=== PATIENT | male | born 1995 | race Caucasian/White ===

== ENCOUNTER → 2022-03-16 11:26 | Outpatient (BNVA) | payer OTHER, SELFPAY | PROVIDERS: PCP Nurse Practitioner Family; Visit Provider Nurse Practitioner Family | DX: R53.83 Other fatigue (principal); E16.2 Hypoglycemia, unspecified; E55.9 Vitamin D deficiency, unspecified; Z13.6 Encounter for screening for cardiovascular disorders; F43.10 Post-traumatic stress disorder, unspecified; R73.9 Hyperglycemia, unspecified; F41.9 Anxiety disorder, unspecified; F32.A Depression, unspecified | CPT/HCPCS: 80053; 80061; 82306; 82607; 83036; 84403; 84439; 84443; 85025 ==

== ENCOUNTER → 2022-04-16 08:31 | Outpatient (BNVA) | payer OTHER, SELFPAY | PROVIDERS: PCP Nurse Practitioner Family; Visit Provider Nurse Practitioner Family | DX: R79.89 Other specified abnormal findings of blood chemistry (principal); R53.83 Other fatigue | CPT/HCPCS: 80076; 84403; 86705; 86706; 86709; 86803; 87340 ==

== ENCOUNTER 2022-05-28 06:11 | Outpatient (CLI) | payer OTHER, SELFPAY ==
--- NOTE | 2022-05-28 | US_ITS ---
WS: [id number] RIGHT UPPER QUADRANT ULTRASOUND HISTORY: ELEVATED LIVER ENZYMES COMPARISON: None available. Liver: 14.3 cm in length. Normal size liver. No bile duct dilatation or mass. Portal Vein: Normal hepatopetal flow with monophasic waveform. Gallbladder: Normally distended gallbladder with no stones or wall thickening. CBD: 0.4 cm Pancreas: Normal size and echogenicity. Right kidney: 10.2 cm in length. Normal size and echogenicity. No hydronephrosis or mass. Aorta and IVC: Unremarkable abdominal aorta and IVC. No ascites. US/US abdomen limited [id number] IMPRESSION: Normal RIGHT upper quadrant ultrasound.
== END 2022-05-28 06:12 | disposition home or self-care (01) ==
LOC: RAD 06:12
PROVIDERS: PCP Nurse Practitioner Family; Visit Provider Family Medicine
DX: R74.8 Abnormal levels of other serum enzymes (principal)
CPT/HCPCS: 76705

== ENCOUNTER → 2023-05-31 10:01 | Outpatient (BNVA) | payer OTHER, SELFPAY | PROVIDERS: PCP Nurse Practitioner Family; Visit Provider Nurse Practitioner Family | DX: R05.9 Cough, unspecified (principal); J40 Bronchitis, not specified as acute or chronic | CPT/HCPCS: 71046; 87400; 87426 ==

== ENCOUNTER 2023-09-24 20:00 | Outpatient (CLI) | payer OTHER, SELFPAY | END 2023-09-24 20:01 | disposition home or self-care (01) | LOC: SLEEP 09-25 06:22 | PROVIDERS: PCP Nurse Practitioner Family; Visit Provider Family Medicine | DX: G47.33 Obstructive sleep apnea (adult) (pediatric) (principal) | CPT/HCPCS: 95811 ==

== ENCOUNTER 2023-12-12 02:32 | Emergency (ER) | payer OTHER, SELFPAY ==
[2023-12-12 02:35] VITALS: BP 154/112; PULSE 103; RESP 18; TEMP 36.8; O2SAT 96; BMI 36.2
[2023-12-12 02:42] VITALS: BP 154/112; O2SAT 95
--- NOTE | 2023-12-12 02:43 | XRR_ITS ---
PROCEDURE INFORMATION: Exam: XR Chest Exam date and time: 12/12/2023 3:14 AM Age: 28 years old Clinical indication: Shortness of breath; Additional info: SOB TECHNIQUE: Imaging protocol: Radiologic exam of the chest. Views: 1 view. COMPARISON: CR XR chest 2V* [id number] 05/31/2023 10:06 AM FINDINGS: Lungs: Unremarkable. No consolidation. Pleural spaces: Unremarkable. No pleural effusion. No pneumothorax. Heart/Mediastinum: Unremarkable. No cardiomegaly. Bones/joints: Unremarkable. XR/XR chest 1V portable [id number] IMPRESSION: No acute findings.
--- NOTE | 2023-12-12 02:44 | W.ED.ANXIETY ---
HPI - Anxiety General: Chief Complaint: Anxiety Stated Complaint: BP High\PTSD Anxiety Time Seen by Provider: 12/12/23 02:34 Source: patient Mode of arrival: ambulatory Limitations: no limitations History of Present Illness: 28-year-old male has a history of PTSD and anxiety states he started having some dyspnea at 10 he notices blood pressure was elevated to his started feeling extremely anxious. Studies just felt weak and not right with some fluttering in his chest along with some slight dyspnea he denies any vomiting or diarrhea. Associated symptoms: Reports chest pain; Deny chills, fever(s), nausea or vomiting Review of Systems Const: Denies: fever(s), chills, body aches or change in appetite ENMT: Denies: throat pain or dental pain Card: Reports: chest pain Resp: Reports: dyspnea GI: Denies: abdominal pain, nausea, vomiting or diarrhea : Denies: dysuria Musc: Denies: neck pain or back pain Skin/Breast: Denies: rash Psych: Reports: anxiety PFSH ED PFSH: Medical History Vitamin D deficiency Anxiety Depression PTSD (post-traumatic stress disorder) Surgical History [place] teeth extracted Family History Mother Hypertension Depression Social History Smoking and tobacco/nicotine status: current every day tobacco/nicotine user smokeless tobacco Smokeless tobacco user: snuff Smokeless tobacco details: 1 can/day Second hand smoke exposure: No Alcohol intake: current Alcohol intake frequency: 0-2 Drinks per Day Alcohol type: beer Substance/Drug Use: current Substance/Drug use frequency: daily Adopted: No Caregiver/support person: Yes Lives independently: Yes Household members: spouse and children Marital status: Number of children: 1 Highest education level completed: High School Graduate service: Yes status: Medically Discharged/Retired branch: [place] Assignments: Outside [facility] ([facility]) Known or Potential Exposure: Post Traumatic Stress Disorder (PTSD) Current occupational status: unemployed Current gender identity: Male Special angelika needs: No Agree to transfusion: Yes Physical Exam Const: COMMON NORMALS: no acute distress, patient oriented x3 and healthy appearing HENMT: COMMON NORMALS: normocephalic and atraumatic HEAD & SCALP: normocephalic and atraumatic Neck/C-Spine: COMMON NORMALS: full ROM and supple Chest: COMMONS NORMALS: normal inspection of the chest and normal palpation of entire chest wall Resp: COMMON NORMALS: normal respiratory effort, No retractions, No use of accessory muscles and clear to auscultation bilaterally AUSCULTATION: clear to auscultation bilaterally Cardio: COMMON NORMALS: regular rhythm and No murmurs present (Cardio) RATE: tachycardic RHYTHM: regular rhythm Extremity: COMMON NORMALS: normal to inspection and full ROM Neuro: COMMON NORMALS: patient oriented x3, moves all extremities and no focal motor deficits Psych: COMMON NORMALS: mental status grossly normal, Normal thought process present and cooperative THOUGHT PROCESS: Normal thought process present Skin: COMMON NORMALS: no rashes or lesions noted and no wounds GENERAL SKIN EXAM: no rashes or lesions noted Course Vital Signs: Vital signs: Vital Signs Temperature 98.2 F 12/12/23 02:35 Pulse Rate 103 H 12/12/23 02:35 Respiratory Rate 18 12/12/23 02:35 Blood Pressure 154/112 12/12/23 02:42 Pulse Oximetry 95 12/12/23 02:42 Oxygen Delivery Me thod Room Air 12/12/23 02:42 MDM - Anxiety Medical Decision Making Patient presents here with hypertension with some dyspnea he was quite anxious he feels much improved here after Ativan. Blood work here is normal troponin D-dimer normal no signs of ACS or pulmonary embolism we will start him on metoprolol he is follow-up with PCP return if worsening. Medical Records I reviewed the patient's medical records. Lab Data I reviewed the patient's lab results. 12/12/23 02:50 12/12/23 02:50 Laboratory Results WBC 6.63 10^3/uL (3.29-11.43) 12/12/23 02:50 RBC 5.60 10^6/uL (3.85-5.65) 12/12/23 02:50 Hgb 17.30 g/dL (11.27-16.99) H 12/12/23 02:50 Hct 50.1 % (37-53) 12/12/23 02:50 MCV 89.5 fl (82-101) 12/12/23 02:50 MCH 30.9 pg (27-33) 12/12/23 02:50 MCHC 34.5 g/dL (30-55) 12/12/23 02:50 RDW 12.2 % (12.1-15.1) 12/12/23 02:50 Plt Count 236 10^3/cmm (157-399) 12/12/23 02:50 MPV 10.8 fL (7.4-10.4) H 12/12/23 02:50 Neut % (Auto) 48.0 % 12/12/23 02:50 Lymph % (Auto) 33.8 % 12/12/23 02:50 [place] % (Auto) 13.9 % 12/12/23 02:50 Eos % (Auto) 3.0 % 12/12/23 02:50 Baso % (Auto) 0.8 % 12/12/23 02:50 Neut # (Auto) 3.19 10^3/uL (1.8-7.7) 12/12/23 02:50 Lymph # (Auto) 2.2 10^3/uL (0.8-4.8) 12/12/23 02:50 [place] # (Auto) 0.9 10^3/uL (0.2-0.9) 12/12/23 02:50 Eos # (Auto) 0.2 10^3/uL (0.0-0.8) 12/12/23 02:50 Baso # (Auto) 0.1 10^3/uL (0.0-0.1) 12/12/23 02:50 Nucleated RBC % (auto) 0 % 12/12/23 02:50 Nucleated RBCs # 0.0 /100WBC 12/12/23 02:50 D-Dimer 0.46 ug/mLFEU (0-0.59) 12/12/23 02:50 Sodium 136 mmol/L (136-145) 12/12/23 02:50 Potassium 3.9 mmol/L (3.5-5.1) 12/12/23 02:50 Chloride 101 mmol/L (98-107) 12/12/23 02:50 Carbon Dioxide 22 mmol/L (22-29) 12/12/23 02:50 Anion Gap 16.9 (5-19) 12/12/23 02:50 BUN 12 mg/dL (6-20) 12/12/23 02:50 Creatinine 1.0 mg/dL (0.7-1.2) 12/12/23 02:50 GFR Calculation 88.3 mL/min (90-130) L 12/12/23 02:50 Glucose 103 mg/dL (65-115) 12/12/23 02:50 Calculated Osmolality 282 mOsm/kg (285-295) L 12/12/23 02:50 Calcium 9.6 mg/dL (8.5-10.5) 12/12/23 02:50 Total Bilirubin 0.2 mg/dL (0.15-1.2) 12/12/23 02:50 AST 40 U/L (0-40) 12/12/23 02:50 ALT 74 U/L (0-41) H 12/12/23 02:50 Alkaline Phosphatase 70 U/L (40-130) 12/12/23 02:50 Troponin T Baseline < 6 ng/L (0-15) 12/12/23 02:50 Total Protein 7.5 g/dL (6.6-8.7) 12/12/23 02:50 Albumin 4.7 g/dL (3.5-5.2) 12/12/23 02:50 Globulin 2.8 g/dL (1.3-4.6) 12/12/23 02:50 All radiology interpretation(s) finalized by discharge EKG Data EKG 1: I personally reviewed and interpreted this EKG as follows: EKG interpretation date: 12/12/23 EKG interpretation time: 02:39 Interpretation: sinus tach hr [address] or t wave abnormalities qrs 92 qtc 372 Discharge Plan Discharge Patient Disposition: Home Clinical Impression: Anxiety, Hypertension, Chest pain Condition: Stable Prescriptions: New metoprolol succinate 25 mg tablet extended release 24 hr 25 mg PO DAILY Qty: 30 0RF Discharge Orders: Discharge ED (Routine); Ordered 12/12/23 Ordered By: Pat Newell Discharge Diet: Advance as tolerated Discharge Activity: Resume usual activity Patient Instructions: Hypertension (ED), Anxiety (ED) Coding Level of Care Code ED Waiter/Waitress Tourist Class for Chg Miriam
[2023-12-12 02:54] LABS: Basophils # 0.1 10^3/uL (0.0-0.1); Basophils % 0.8 %; Eosinophils # 0.2 10^3/uL (0.0-0.8); Hematocrit 50.1 % (37-53); Lymphocytes # 2.2 10^3/uL (0.8-4.8); Lymphocytes % 33.8 %; Mean Corpuscular HGB Conc 34.5 g/dL (30-55); Mean Corpuscular Hemoglobin 30.9 pg (27-33); Mean Corpuscular Volume 89.5 fl (82-101); Mean Platelet Volume 10.8 fL (7.4-10.4); Monocytes # 0.9 10^3/uL (0.2-0.9); Monocytes % 13.9 %; Neutrophils # 3.19 10^3/uL (1.8-7.7); Nucleated Red Blood Cells % 0 %; Platelet Count 236 10^3/cmm (157-399); Red Cell Distribution Width 12.2 % (12.1-15.1); White Blood Count 6.63 10^3/uL (3.29-11.43)
[2023-12-12] MEDS: LORazepam 2 mg/mL INJ 10 mL MDV 1 MG IVP (03:09)
[2023-12-12 03:12] LABS: D Dimer 0.46 ug/mLFEU (0-0.59)
[2023-12-12 03:14] LABS: Troponin(5th) Baseline < 6 ng/L (0-15)
[2023-12-12 03:35] LABS: Alanine Aminotransferase 74 U/L (0-41); Albumin Level 4.7 g/dL (3.5-5.2); Alkaline Phosphatase 70 U/L (40-130); Blood Urea Nitrogen 12 mg/dL (6-20); Calcium 9.6 mg/dL (8.5-10.5); Carbon Dioxide 22 mmol/L (22-29); Chloride 101 mmol/L (98-107); Creatinine Clr Calc Pharmacy 142.3785; Globulin 2.8 g/dL (1.3-4.6); Glomerular Filtration Rate 88.3 mL/min (90-130); Glucose 103 mg/dL (65-115); Osmolality Calculated 282 mOsm/kg (285-295); Total Bilirubin 0.2 mg/dL (0.15-1.2); Total Protein 7.5 g/dL (6.6-8.7)
[2023-12-12 03:39] LABS: Anion Gap 16.9 (5-19); Aspartate Amino Transferase 40 U/L (0-40); Potassium 3.9 mmol/L (3.5-5.1); Sodium 136 mmol/L (136-145)
[2023-12-12 03:43] VITALS: BP 154/104; PULSE 105; RESP 18; O2SAT 97
--- NOTE | 2023-12-12 04:43 | ECG_ITS ---
[facility] Test Date: 2023-12-12 Pat Name: Kendall Eastman Department: Room: Gender: Male Office Services Representative: : 1995 Requested By: Pat Newell Order Number: [id number] Dary MD: Joaquin Rivera M.D. Measurements Intervals [place] Rate: 103 P: 67 OR: 153 QRS: 90 QRSD: 92 T: 70 QT: 313 QTc: 410 Interpretive Statements SINUS TACHYCARDIA ABNORMAL RHYTHM ECG No previous ECG available for comparison Electronically Signed On 12-13-2023 0:20:12 CDT by Joaquin Rivera M.D. [id number]
== END 2023-12-12 03:50 | disposition home or self-care (01) ==
PROVIDERS: Emergency Provider Emergency Medicine
DX: F41.9 Anxiety disorder, unspecified (principal); I10 Essential (primary) hypertension; R07.9 Chest pain, unspecified; F17.290 Nicotine dependence, other tobacco product, uncomplicated
CPT/HCPCS: 71045; 80053; 84484; 85025; 85378; 93005; 96374; 99285; J2060

== ENCOUNTER 2024-10-16 14:04 | Emergency (ER) | payer OTHER, SELFPAY ==
[2024-10-16 14:38] VITALS: BP 135/75; PULSE 81; RESP 18; TEMP 36.6; O2SAT 98; BMI 36.2
--- NOTE | 2024-10-16 14:43 | ECG_ITS ---
[facility] Test Date: 2024-10-16 Pat Name: Kendall Eastman Department: Room: Gender: Male Dampproofer: : 1995 Requested By: Tana Rosenthal Order Number: [id number] Foote MD: Jefferson Lala M.D. Measurements Intervals [place] Rate: 80 P: 50 [place]: 143 QRS: 101 QRSD: 119 T: 47 QT: 338 QTc: 392 Interpretive Statements SINUS RHYTHM RIGHT AXIS DEVIATION [QRS AXIS > 100] MODERATE INTRAVENTRICULAR CONDUCTION DELAY [110+ ms QRS DURATION] Compared to ECG 12/12/2023 02:39:41 Right-axis deviation now present Intraventricular conduction delay now present Sinus tachycardia no longer present Electronically Signed On 10-17-2024 07:40:08 CDT by Jefferson Lala M.D. [id number]
--- NOTE | 2024-10-16 16:34 | XRR_ITS ---
PROCEDURE INFORMATION: Exam: XR Chest Exam date and time: 10/16/2024 8:44 PM Age: 29 years old Clinical indication: Shortness of breath; C/O SOB; Additional info: Chest pain TECHNIQUE: Imaging protocol: Radiologic exam of the chest. Views: 1 view. COMPARISON: CR XR chest 1V portable [id number] 12/12/2023 3:14 AM FINDINGS: Lungs: Unremarkable. No consolidation. Pleural spaces: Unremarkable. No pleural effusion. No pneumothorax. Heart/Mediastinum: Unremarkable. No cardiomegaly. Bones/joints: Unremarkable. XR/XR chest 1V portable [id number] IMPRESSION: No acute cardiopulmonary findings.
[2024-10-16 16:57] LABS: Basophils % 0.6 %; Eosinophils # 0.1 10^3/uL (0.0-0.8); Eosinophils % 1.7 %; Hematocrit 50.8 % (37-53); Lymphocytes # 2.2 10^3/uL (0.8-4.8); Lymphocytes % 33.4 %; Mean Corpuscular HGB Conc 33.3 g/dL (30-55); Mean Corpuscular Hemoglobin 30.1 pg (27-33); Mean Corpuscular Volume 90.6 fl (82-101); Mean Platelet Volume 11.1 fL (7.4-10.4); Monocytes # 0.8 10^3/uL (0.2-0.9); Monocytes % 11.7 %; Neutrophils # 3.45 10^3/uL (1.8-7.7); Neutrophils % 52.3 %; Nucleated Red Blood Cells % 0 %; Platelet Count 212 10^3/cmm (157-399); Red Blood Count 5.61 10^6/uL (3.85-5.65); Red Cell Distribution Width 11.9 % (12.1-15.1); White Blood Count 6.59 10^3/uL (3.29-11.43)
[2024-10-16 17:21] LABS: Troponin(5th) Baseline < 6 ng/L (0-15)
[2024-10-16 17:31] LABS: Alanine Aminotransferase 64 U/L (0-41); Albumin Level 4.8 g/dL (3.5-5.2); Alkaline Phosphatase 66 U/L (40-130); Aspartate Amino Transferase 37 U/L (0-40); Blood Urea Nitrogen 7 mg/dL (6-20); Calcium 9.7 mg/dL (8.5-10.5); Carbon Dioxide 22 mmol/L (22-29); Chloride 102 mmol/L (98-107); Creatinine Clr Calc Pharmacy 156.7731; Globulin 2.8 g/dL (1.3-4.6); Glomerular Filtration Rate 99.1 mL/min (90-130); Glucose 85 mg/dL (65-115); Osmolality Calculated 281 mOsm/kg (285-295); Sodium 137 mmol/L (136-145); Total Bilirubin 0.5 mg/dL (0.15-1.2); Total Protein 7.6 g/dL (6.6-8.7)
[2024-10-16 17:32] LABS: Anion Gap 17.3 (5-19); Potassium 4.3 mmol/L (3.5-5.1)
[2024-10-16 18:14] VITALS: PULSE 77; O2SAT 100
[2024-10-16 18:29] LABS: Troponin 5 2HR Delta 0.00001 ABS# (0-10)
--- NOTE | 2024-10-16 18:39 | ECG_ITS ---
[facility] Date: 2024-10-16 Pat Name: Kendall Eastman Department: Room: Gender: Male Overlay Operator: : 1995 Requested By: Tana Rosenthal Order Number: [id number] Dary MD: Jefferson Lala M.D. Measurements Intervals [place] Rate: 72 P: 41 [place]: 145 QRS: 121 QRSD: 88 T: 32 QT: 347 QTc: 382 Interpretive Statements SINUS RHYTHM POSSIBLE LEFT ATRIAL ENLARGEMENT [-0.1mV P-WAVE IN V1/V2] POSSIBLE RIGHT VENTRICULAR CONDUCTION DELAY [RSR (QR) IN V1/V2] LEFT POSTERIOR FASCICULAR BLOCK [QRS AXIS > 109, INFERIOR Q] Compared to ECG 10/16/2024 14:43:02 Left posterior fascicular block now present Right-axis deviation no longer present Intraventricular conduction delay no longer present Electronically Signed On 10-17-2024 07:45:29 CDT by Jefferson Lala M.D. [id number]
[2024-10-16 20:59] VITALS: BP 131/88; PULSE 76; RESP 16; O2SAT 99
[2024-10-16 21:00] VITALS: BP 131/88; PULSE 74; RESP 16; O2SAT 97
[2024-10-16 21:30] VITALS: BP 131/88; PULSE 81; RESP 16; O2SAT 100
[2024-10-16] MEDS: LORazepam 2 mg Tablet PO (21:46)
[2024-10-16 21:48] VITALS: BP 131/88; PULSE 67; RESP 18; O2SAT 97
--- NOTE | 2024-10-16 23:39 | ED_ITS ---
HPI - SOB/Dyspnea 2 General: Chief Complaint: Shortness of Breath/Dyspnea Stated Complaint: weak, SOB, dizzy Time Seen by Provider: 10/16/24 20:45 Source: patient Mode of arrival: ambulatory Limitations: no limitations History of Present Illness: HPI Narrative: Patient is a 29-year-old male who presents the emergency department complaining of shortness of breath since yesterday. States that he feels like he cannot get a full breath, has been mildly dizzy as well. He states he has a history of obstructive sleep apnea and uses CPAP at night, and feels like he had a hard time sleeping due to this feeling. Has not reported any chest pain. Does not report any pertinent cardiac history. He does note a history of PTSD, is wondering if this is related to anxiety/panic but also wanted to get his heart checked out. States he feels mildly short of breath at this time, vitals are all within normal limits. He does take metoprolol for blood pressure. Does not report any specific alleviating or exacerbating factors to his breathing. MD elicited complaint: shortness of breath Pertinent past history: other (ARISTIDES) Onset (ago): day(s) Timing: improved Exacerbating factors: nothing Relieving factors: nothing Associated symptoms: Reports dizziness; Deny abdominal pain, chest pain, fever(s), lightheadedness, nausea, palpitations or vomiting Related Data Previous Rx's ?Medication ?Instructions ?Recorded metoprolol succinate 25 mg 25 mg PO DAILY #30 tabs tablet,extended release 24 hr Allergies Allergy/AdvReac Type Severity Reaction Status Date / Time No Known Allergies Allergy Unverified 05/31/23 09:25 Review of Systems 2 General: Reports: 10 or more systems reviewed and unremarkable except in HPI and below Const: Denies: fever(s), chills or fatigue Eyes: Denies: change in vision ENMT: Denies: throat pain, ear or mastoid pain or nasal discharge Card: Denies: chest pain, palpitations, swelling of feet/ankles or lightheadedness Resp: Reports: dyspnea; Denies: productive cough or wheezing GI: Denies: abdominal pain, nausea, vomiting, diarrhea or constipation : Denies: flank pain, difficulty urinating, dysuria or urinary frequency Musc: Denies: neck pain, back pain or joint pain Skin/Breast: Denies: rash Neuro: Reports: dizziness; Denies: headache(s), numbness in extremities or weakness in extremities PFSH ED 2 PFSH: Medical History Vitamin D deficiency Anxiety Depression PTSD (post-traumatic stress disorder) Surgical History [place] teeth extracted Family History Mother Hypertension Depression Social History Smoking and tobacco/nicotine status: current every day tobacco/nicotine user smokeless tobacco Smokeless tobacco user: snuff Smokeless tobacco details: 1 can/day Second hand smoke exposure: No Alcohol intake: current Alcohol intake frequency: 0-2 Drinks per Day Alcohol type: beer Substance/Drug Use: current Substance/Drug use frequency: daily Adopted: No Caregiver/support person: Yes Lives independently: Yes Household members: spouse and children Marital status: Number of children: 1 Highest education level completed: High School Graduate service: Yes status: Medically Discharged/Retired branch: [place] Assignments: Outside [facility] ([facility]) Known or Potential Exposure: Post Traumatic Stress Disorder (PTSD) Current occupational status: unemployed Current gender identity: Male Special angelika needs: No Agree to transfusion: Yes Physical Exam 2 Const: COMMON NORMALS: no acute distress, patient oriented x3 and no limitations GENERAL APPEARANCE: cooperative, comfortable and well developed ORIENTATION/CONSCIOUSNESS: Yes awake, Yes oriented to person, Yes oriented to place and Yes oriented to time HENMT: COMMON NORMALS: normocephalic, atraumatic and hearing grossly normal bilaterally HEAD & SCALP: normocephalic and atraumatic Eye: COMMON NORMALS: Equal, round and reactive pupils present, EOMs intact bilaterally and conjunctivae normal CONJUNCTIVA: Yes conjunctivae normal P UPIL: Yes Equal, round and reactive pupils present Neck/C-Spine: COMMON NORMALS: full ROM, supple and no JVD Resp: COMMON NORMALS: normal respiratory effort, No retractions, No use of accessory muscles and clear to auscultation bilaterally AUSCULTATION: clear to auscultation bilaterally Cardio: COMMON NORMALS: no JVD, regular rate, regular rhythm, No clicks present (Cardio), No murmurs present (Cardio) and No rub (Cardio) RATE: r egular rate RHYTHM: regular rhythm GI: COMMON NORMALS: Normal to inspection, nondistended, normoactive bowel sounds present, Soft to palpation and non-tender AUSCULTATION: Yes normoactive bowel sounds PALPATION: Yes Soft to palpation RECTAL EXAM: Yes deferred Extremity: COMMON NORMALS: normal to inspection, full ROM and capillary refill normal Neuro: COMMON NORMALS: patient oriented x3, moves all extremities, no focal motor deficits and no sensory deficits noted SENSORIUM/ORIENTATION: Yes oriented to person, Yes oriented to place and Yes oriented to time Psych: COMMON NORMALS: mental status grossly normal and Normal thought process present THOUGHT PROCESS: Normal thought process present Skin: COMMON NORMALS: no rashes or lesions noted GENERAL SKIN EXAM: no rashes or lesions noted Course 2 Vital Signs: Vital signs: Vital Signs Temperature 97.8 F 10/16/24 14:38 Pulse Rate 67 10/16/24 21:48 Respiratory Rate 18 10/16/24 21:48 Blood Pressure 131/88 10/16/24 21:48 Pulse Oximetry 97 10/16/24 21:48 Oxygen Delivery Me thod Room Air 10/16/24 14:38 MDM - SOB/Dyspnea Medical Decision Making Physical exam was unremarkable. Lung sounds were normal, vitals have been normal. I do suspect anxiety or exacerbation of his PTSD from this, treated with Ativan here and informed him to follow-up with regular doctor for reevaluation. Did give him return precautions, he verbalized understanding. Lab Data 10/16/24 16:46 10/16/24 16:46 Labs/Radiology: Radiology Impressions Chest X-Ray 10/16/24 16:34 IMPRESSION: No acute cardiopulmonary findings. Laboratory Results WBC 6.59 10^3/uL (3.29-11.43) 10/16/24 16:46 RBC 5.61 10^6/uL (3.85-5.65) 10/16/24 16:46 Hgb 16.90 g/dL (11.27-16.99) 10/16/24 16:46 Hct 50.8 % (37-53) 10/16/24 16:46 MCV 90.6 fl (82-101) 10/16/24 16:46 MCH 30.1 pg (27-33) 10/16/24 16:46 MCHC 33.3 g/dL (30-55) 10/16/24 16:46 RDW 11.9 % (12.1-15.1) L 10/16/24 16:46 Plt Count 212 10^3/cmm (157-399) 10/16/24 16:46 MPV 11.1 fL (7.4-10.4) H 10/16/24 16:46 Neut % (Auto) 52.3 % 10/16/24 16:46 Lymph % (Auto) 33.4 % 10/16/24 16:46 [place] % (Auto) 11.7 % 10/16/24 16:46 Eos % (Auto) 1.7 % 10/16/24 16:46 Baso % (Auto) 0.6 % 10/16/24 16:46 Neut # (Auto) 3.45 10^3/uL (1.8-7.7) 10/16/24 16:46 Lymph # (Auto) 2.2 10^3/uL (0.8-4.8) 10/16/24 16:46 [place] # (Auto) 0.8 10^3/uL (0.2-0.9) 10/16/24 16:46 Eos # (Auto) 0.1 10^3/uL (0.0-0.8) 10/16/24 16:46 Baso # (Auto) 0.0 10^3/uL (0.0-0.1) 10/16/24 16:46 Nucleated RBC % (auto) 0 % 10/16/24 16:46 Nucleated RBCs # 0.0 /100WBC 10/16/24 16:46 Sodium 137 mmol/L (136-145) 10/16/24 16:46 Potassium 4.3 mmol/L (3.5-5.1) 10/16/24 16:46 Chloride 102 mmol/L (98-107) 10/16/24 16:46 Carbon Dioxide 22 mmol/L (22-29) 10/16/24 16:46 Anion Gap 17.3 (5-19) 10/16/24 16:46 BUN 7 mg/dL (6-20) 10/16/24 16:46 Creatinine 0.9 mg/dL (0.7-1.2) 10/16/24 16:46 GFR Calculation 99.1 mL/min (90-130) 10/16/24 16:46 Glucose 85 mg/dL (65-115) 10/16/24 16:46 Calculated Osmolality 281 mOsm/kg (285-295) L 10/16/24 16:46 Calcium 9.7 mg/dL (8.5-10.5) 10/16/24 16:46 Total Bilirubin 0.5 mg/dL (0.15-1.2) 10/16/24 16:46 AST 37 U/L (0-40) 10/16/24 16:46 ALT 64 U/L (0-41) H 10/16/24 16:46 Alkaline Phosphatase 66 U/L (40-130) 10/16/24 16:46 Troponin T Baseline < 6 ng/L (0-15) 10/16/24 16:46 Troponin T 120 Minute 6.00 ng/L (0-15) 10/16/24 18:05 Delta Troponin T 0.32175 ABS# (0-10) 10/16/24 18:05 Total Protein 7.6 g/dL (6.6-8.7) 10/16/24 16:46 Albumin 4.8 g/dL (3.5-5.2) 10/16/24 16:46 Globulin 2.8 g/dL (1.3-4.6) 10/16/24 16:46 All radiology interpretation(s) finalized by discharge Discharge Plan Discharge Patient Disposition: Home Clinical Impression: Shortness of breath, Anxiety Condition: Stable Prescriptions: No Action metoprolol succinate 25 mg tablet extended release 24 hr 25 mg PO DAILY Qty: 30 0RF Discharge Orders: Discharge ED (Routine); Ordered 10/16/24 Ordered By: Aden Rivas Patient Instructions: Shortness of Breath (ED) Activity Restrictions/Additional Instructions: Please follow-up with your regular doctor on Saturday as we discussed. Continue CPAP at home, if you continue to have trouble breathing, low oxygen readings, chest pains, or any other concerns return to the ED as we discussed. Your lab work, imaging, and EKG today were all normal. Continue taking your home medications. Print Language: Emirati Coding Level of Care Code ED Operations Engineer for Dagoberto Pineda
== END 2024-10-16 21:49 | disposition home or self-care (01) ==
PROVIDERS: Physician Assistant; Emergency Provider Physician Assistant
DX: R06.02 Shortness of breath (principal); F41.9 Anxiety disorder, unspecified; F17.220 Nicotine dependence, chewing tobacco, uncomplicated
CPT/HCPCS: 36415; 71045; 80053; 84484; 85025; 93005; 99285; J9999